=== PATIENT | female | born 1955 | race Caucasian/White ===

== ENCOUNTER → 2024-06-22 | Outpatient (CLI) | payer OTHER ==
--- NOTE | 2024-06-22 09:17 | HMCIMG ---
BONE DENSITOMETRY: HISTORY: Unspecified menopausal and perimenopausal disorder Comparison: None FINDINGS: BMD measured at AP spine L1-L4 is 0.638 g/cm2 with a T-score of -3.7 This patient is considered osteoporotic according to WHO criteria. Fracture risk is high. BMD measured at Left Femoral Neck is 0.562 g/cm2 with a T-score of -2.6 This patient is considered osteoporotic according to WHO criteria. Fracture risk is high. IMPRESSION: Osteoporosis. High risk for atraumatic fractures. Treatment and follow-up recommended.
== END | disposition home or self-care (01) ==
LOC: RAH 08:40
PROVIDERS: ATTEND Internal Medicine
DX: M81.0 Age-related osteoporosis without current pathological fracture (principal); N95.9 Unspecified menopausal and perimenopausal disorder
CPT/HCPCS: 77080

== ENCOUNTER → 2025-06-09 | Outpatient (CLI) | payer OTHER ==
--- NOTE | 2025-06-09 18:58 | HMCSR ---
APPROVED REPORT EXAM: Two-dimensional and M-mode echocardiogram with Doppler and color Doppler. INDICATION ICD: R06.00 Dyspnea, R53.83 2D Dimensions RVDd 3.1 cm LVEF(%) 67.9 (>50%) LA ESV INDEX (BP) 26.84 mL/m2 IVSd 0.5 (0.7-1.1cm) FS(%) 37 % LVDd 4.1 (3.8-5.6cm) LA (2D) 3.2 (1.6-4.0cm) PWd 0.7 (0.7-1.1cm) LVOT diam 1.7 (1.8-2.4cm) IVSs 0.9 cm IVC diam 1.1 cm LVDs 2.5 (2.5-4.0cm) PWs 1.1 cm M-Mode Dimensions EPSS 0.3 cm LA (MM) 3.5 (1.6-4.0cm) Ao Root(MM) 2.0 (2.0-3.7cm) Aortic Valve AoV Vmax 1.2 m/s Ao Peak GR 5.8 mmHg LVOT Vmax 1.0 m/s AoV VTI 0.2 m Ao Mean GR 3.3 mmHg LVOT VTI 0.21 m JAMES (VMAX) 1.90 cm2 JAMES (VTI) 2.0 cm2 Mitral Valve MV E Vmax 76.9 cm/s DECEL Time 159 ms MV A Vmax 76.5 cm/s P 1/2 T 48 ms E/A ratio 1.0 MVA (PHT) 4.5 cm2 TDI E/E' Medial 12.4 E/E' Lateral 13.6 Medial E' Peak V 6.18 cm/s Lateral E' Peak V 5.64 cm/s Pulmonary Valve PV Vmax 1.0 m/s PV VTI 0.18 m PV Mean GR 2.1 mmHg PV Peak GR 4.2 mmHg Tricuspid Valve TR Vmax 1.7 m/s RAP (EST) 3 mmHg RVSP 14.2 mmHg TR Peak GR 11.2 mmHg Left Ventricle The left ventricle is normal size. There is normal LV segmental wall motion. There is normal left ventricular wall thickness. The LVEF is > 65%. The left ventricular diastolic function is normal. Right Ventricle The right ventricle is normal size. The right ventricular systolic function is normal. Atria The left atrium size is normal. The right atrium size is normal. Aortic Valve Not well visualized, thickened and appears trileaflet Trace of aortic regurgitation is present. There is no aortic valvular stenosis. Mitral Valve The mitral valve is mildly thickened with no vegeations There is trace of mitral valve regurgitation noted. There is no mitral valve stenosis. Tricuspid Valve The tricuspid valve is normal in structure. There is trace of tricuspid valve regurgitation noted. Pulmonic Valve Pulmonic valve is not well visualized. There is no pulmonic valvular regurgitation. Great Vessels The aortic root is normal in size. The IVC is normal in size and collapses >50% with inspiration. Pericardium There is no pericardial effusion. Other Information Quality : Adequate Conclusion The left ventricle is normal size.The LVEF is > 65% with normal LV segmental wall motion. The left ventricular diastolic function is normal. The right ventricular systolic function is normal. Both atria are normal in size. No hemodynamically significant valvular abnormalities. There is no pericardial effusion.
== END | disposition home or self-care (01) ==
LOC: RAH 13:49
PROVIDERS: ATTEND Internal Medicine
DX: I34.0 Nonrheumatic mitral (valve) insufficiency (principal); R06.00 Dyspnea, unspecified; R53.83 Other fatigue
CPT/HCPCS: 93306